=== PATIENT | female | born 1930 | race Caucasian/White ===

== ENCOUNTER 2019-03-20 16:26 | Inpatient (IN) | payer MEDICARE ==
[~2019-03-20] VITALS: Ht 162.6 cm; Wt 60.3 kg
[~2019-03-20 16:26] MED LIST: ASPIRIN EC81 MG PO; COLACE100 MG PO; QUETIAPINE FUMA25 MG PO; SYNTHROID50 MCG PO; VITAMIN D1000 UNI1 PO
[2019-03-20] MEDS ORDERED: ACETAMINOPHEN325 M1 PO (17:25)
--- NOTE | 2019-03-20 20:15 | NUR ---
TO RM 126 PER STRETCHER FROM ED. MOVED FRON STRETCHER TO BED AND PT STACY WELL, NO CRIES OF PAIN AND IS CALM. L HIP NOTED TO BE ROTATED, FEET ARE COOL BILAT BUT HAS POST TIBIAL PULSES BILAT AND FAINT DORASL PEDLALIS PULSES BILAT. DAUGHTER WITH PT.
--- NOTE | 2019-03-20 21:20 | NUR ---
DR BLACKMAN CALLLED RE 4 PLUS BACTERIA IN UA. WILL AWAIT CULTURE. SPOKE QITH DAUGHTER ABOUT PROS AND CONS OF SURGERY. SHE BECAME TEARFUL AT ONE POINT AND GIVEN SUPPORT. PT IS RESTING.
--- NOTE | 2019-03-20 21:59 | NUR ---
PT IS STILL SLEEPING COMFORTABLY, DAUGHTER AT BEDSIDE. NO NEW CONCERNS AT THIS TIME.
--- NOTE | 2019-03-20 23:55 | NUR ---
HAS BEEN TRYING TO PULL AT WILKES CATH. ATTENDS CHANGED, NO STOOL BUT PASSING GAS. PT GRABBED AT L HIP AND RESISITED TURNING. AFTERWARD GAVE PT WATER AND DRANK WITHOUT PROBLEM. GIVEN 1 NORCO PO WITH PUDDING AND THEN PT ATE ALL OF PUDDING WITHOUT PROBLEM. WILL OCC SAY A FEW WORDS. GOOD PULSES TO L FOOT.
--- NOTE | 2019-03-21 00:26 | NUR ---
PT AT THIS TIME IS SOMEWHAT RESTLESS IN BED. TRIED TO RE-ORIENT PT TO PLACE AND CIRCUMSTANCE.
--- NOTE | 2019-03-21 01:28 | NUR ---
PT IS STILL RESTLESS. PT PULLED OFF STAT-LOCK ON WILKES. MITTENS WERE MADE FOR PATIENT.
--- NOTE | 2019-03-21 02:05 | NUR ---
EYES CLOSED, RESTFUL
--- NOTE | 2019-03-21 03:07 | NUR ---
PT AT THIS TIME IS SLEEPING.
--- NOTE | 2019-03-21 03:59 | NUR ---
PT RESTLESS AND GRIMACING. WHEN SHOULDERS MOVED SO HEAD WAS NOT RESTING ON SIDE RAIL PT STARTLED AND LOOKED FRIGHTENED. HR 90'S AND BP 171/66. PT GIVEN 0.5MG DILAUDID IV FOR PAIN. HEEL PROTECTORS ON. FEET ARE WARM AND PINK AND DORSAL PEDALIS PULSES ARE NOW STRONG.
--- NOTE | 2019-03-21 05:03 | NUR ---
IS RESTFUL NOW.
--- NOTE | 2019-03-21 06:34 | NUR ---
CONT TO SLEEP. DR BLACKMAN NOTIFIED OF URINE OUTPUT. ORDERS RECIEVED.
--- NOTE | 2019-03-21 06:44 | NUR ---
NS 500ML BOLUS STARTED.
--- NOTE | 2019-03-21 07:30 | NUR ---
report recieved. CHUNG PATENT. IVF INFUSING.
--- NOTE | 2019-03-21 07:41 | EKG ---
[facility] [address] [place], [place] [address] Signed Normal sinus rhythm Normal ECG No previous ECGs available Confirmed by ALVARO SANCHEZ MD ([id number]) on 03/21/2019 7:41:19 AM Electronically Signed By: ALVARO SANCHEZ MD 03/21/19 0741 PATIENT NAME: FRANGRACIEBRE L Electrocardiogram DATE OF : 34 PHYSICIAN: ALVARO SANCHEZ MD REPORT #: [id number] REPORT IS CONFIDENTIAL AND NOT TO BE RELEASED WITHOUT AUTHORIZATION
--- NOTE | 2019-03-21 08:00 | NUR ---
ASSESSMENT DONE. NON-VERBAL. GRIMACE WITH MOVEMENT. DAUGHTER AT BEDSIDE.
--- NOTE | 2019-03-21 08:22 | NUR ---
NOCO GIVEN FOR PAIN. CRUSHED MEDS, NORCO GIVEN WITH APPLESAUSE. DR. BLACKMAN HERE TO SEE PATIENT. ORDERS RECIEVED. DR. BLACKMAN TALKED WITH DAUGHTER AND SON ABOUT PLAN OF CARE.
--- NOTE | 2019-03-21 09:30 | NUR ---
TORDOL 15 MG IV GIVEN PER ORDERS. DAUGHTER REMAINS AT BEDSIDE.
--- NOTE | 2019-03-21 09:45 | NUR ---
ASLEEP, NO DISTRESS NOTED. BREAKFAST HELD AT THIS TIME.
--- NOTE | 2019-03-21 10:40 | NUR ---
REPOSITIONED, GRIMACE WITH MOVEMENT
--- NOTE | 2019-03-21 12:06 | NUR ---
NORCO GIVEN PER ORDERS.
--- NOTE | 2019-03-21 13:30 | NUR ---
FED PT APPROX 50% OF LUNCH.
--- NOTE | 2019-03-21 14:00 | NUR ---
SPONGE BATH GIVEN. MOANS AT TIMES AND GRIMACING. VERY DIFFICULT TO MOVE.
--- NOTE | 2019-03-21 15:20 | NUR ---
TORDOL 15 MG IV GIVEN FOLLOWED BY TYLENOL IV.
--- NOTE | 2019-03-21 18:00 | NUR ---
[facility] PT SITTING UP IN BED FOR DINNER.
--- NOTE | 2019-03-21 18:50 | NUR ---
TOOK 80% OF DINNER WAS FED BY RN. NO TROUBLE WITH SWALLOW. DAUGHTER IS IN ROOM.
--- NOTE | 2019-03-21 19:01 | NUR ---
PT ARRIVED FROM CCU VIA BED. PT ONLY MUMBLES. RESTING IN BED OPENING AND CLOSING EYES OCC, NO FACIAL GRIMACE OR OTHER SIGNS OF PAIN NOTED AT THIS TIME. WILKES PATENT. IV INFUSING WNL. VS OBTAINED. REPORT GIVEN TO NESHA CURTIS NURSE. BED ALARM ON. DAUGHTER CARMELO AT BEDSIDE.
--- NOTE | 2019-03-21 20:04 | NUR ---
RECEIVED REPORT FROM DAY SHIFT RN. PATIENT IS RESTING IN BED. DAUGHTER IS AT THE BEDSIDE. PATIENTS DAUGHTER DENIES ANY NEEDS AT THIS TIME. CALL LIGHT IN REACH. BED ALARM ON FOR SAFETY.
--- NOTE | 2019-03-21 21:09 | NUR ---
PATIENT ASSEMENT COMPLETED. IV IUNFUSING PER ORDER. PATIENT REPOSTIIONED. EVENING MEDICATIONS GIVEN PER ORDER. PATIENT APPEARS TO BE RESTING COMFORTABLY. PATIENTS DAUGHTER DENIES PATIENT BEING IN PAIN. PATIENTS VITALS TAKEN AND RECORDED. SIPS OF WATER OFFERED. PATIENT COMPLAINT WITH CARE BUT FEARFUL AT TIMES. PATIENT REASSURED WITH POSTIVIE REINFORCMENT DURING CARE. NO FURTHER NEEDS NOTED. CALL LIGHT IN REACH. BED ALARM ON FOR SAFETY. DAUGHTER REMAINS IN THE ROOM. HEEL PROTECTORS IN PLACE.
--- NOTE | 2019-03-21 22:22 | NUR ---
PATIENTS DAUGHTER NOTIFIED STAFF THAT THE PATIENT WAS UNCOMFORTABLE. PATIENT REPOSITIONED IN BED. PATIENT NOW APPEARS COMFORTABLE. PATIENTS EYES ARE CLOSED, RR 17. PATIENTS WILKES EMPTIED INTAKE AND OUPUT RECORDED. PATIENTS DAUGHTER DENIES ANY NEEDS. CALL LIGHT IN REACH. BED ALARM IS ON FOR SAFETY.
--- NOTE | 2019-03-21 22:23 | NUR ---
THIS CHIEF MEDICAL OFFICER AND PRIMARY RN REPOSITIONED PATIENT. DAUGHTER IN ROOM.
--- NOTE | 2019-03-21 23:42 | NUR ---
PATIENT REPOSITIONED IN BED. PATIENT APPEARS TO BE RESTING PEACFULLY. BED ALARM IS ON FOR SAFETY. CALL LIGHT IN REACH.
--- NOTE | 2019-03-22 01:44 | NUR ---
PATIENT REPOSITIONED IN BED. PATIENT APPEARS RESTLESS AND IS CRYING OUT. PATIENT GIVEN PRN PAIN MEDICAITON PER ORDER. PATIENTS WILKES EMPTIED. PATIENT PROVIDED WITH DRINKS OF WATER. PATIENT WAS ABLE TO DRINK A FAIR AMOUNT OF WATER. PATIENT GIVEN APPLESAUCE WITH MEDICINE. PATIENT WAS ABLE TO EAT 1/2 CUP APPLESAUCE WITH ASSISTANCE. NO FURTHER NEEDS NOTED. CALL LIGHT IN REACH. BED ALARM ON FOR SAFETY.
--- NOTE | 2019-03-22 03:24 | NUR ---
PATIENT RESPOSTIONED IN BED. PATIENT TOLERATED ACTIVITY WELL. PATIENT IS RESTING IN BED. DRINK OF WATER PROVIDED. CALL LIGHT IN REACH. BED ALARM ON FOR SAFETY.
--- NOTE | 2019-03-22 04:28 | NUR ---
PATIENT RESTED WELL THROUGHOUT THE SHIFT. PATIENT IS ON A REGULAR DIET AND REQUIRES ASSISTANCE WITH FEEDING. PATIENT HAS A WILKES IN PLACE THAT IS NOT CHRONIC. PATIENTS OUPUT IS QS. PATIENT IS WEIGHT BEARING TOLERATED, AND HAS NOT BEEN OUT OF BED. PATIENT HAS HEEL PROTECTORS IN PLACE ON BILAT FEET. PATIENT TAKES HER PILLS CRUSHED IN APPLESAUCE. PATIENT SPEAKS IN FRAGMENTED SENTENCES. PATIENT IS NOT ALERT OR ORIENTED. PATIENT DOES NOT USE CALL LIGHT. PATIENT HAS BED ALARM ON FOR SAFETY.
--- NOTE | 2019-03-22 05:13 | NUR ---
PATIENT REPOSITIONED IN BED. PATIENTS VITALS TAKEN AND RECORDED. WILKES EMPTIED AND WILKES CARE COMPLETED. PATIENT WAS ANXIOUS WITH CARE. PATIENT NOW APPEARS TO BE RESTING IN BED PEACEFULLY. PATIENT HAS BILAT HEEL PROTECTORS IN. PATIENTS BED ALARM IS ON FOR SAFETY. CALL LIGHT IN REACH.
--- NOTE | 2019-03-22 07:00 | NUR ---
BEDSIDE HANDOFF REPORT RECEIVED FROM HOSE COUPLING JOINER RN. PT SLEEPING, LEFT UNDISTURBED. IV FLUIDS IN FUSING D5NS +20MEQ K AT 75, CEFEPIME INFUSING. BED ALARM IN PLACE.
--- NOTE | 2019-03-22 08:00 | NUR ---
PT RESTING IN BED, DAUGHTER AT BEDSIDE. PT APPEARS COMFORTABLE, DAUGHTER DOES NOT THIS PT IS HAVING PAIN. PT ON ROOM AIR, LUNG SOUND CLEAR. BOWEL TONES ACTIVE. PT MOVING RIGHT LEG WITHOUT DIFFICULTY, PT NOT FOLLOWING COMMANDS DUE TO DEMENTIA, LEG REST PULSE PALPBLE, PAIN WITH MOVEMENT, HEEL PROTECTORS IN PLACE. IV FLUIDS INFUSING D5NS +20 MEQ K AT 75ML/HR, IV CEFEPIME INFUSING. DISCUSSED PLAN OF CARE WITH DAUGHTER. DAUGHTER DENIES NEEDS AT THIS TIME.
--- NOTE | 2019-03-22 09:15 | NUR ---
MESSAGE LEFT FOR GAS APPLIANCE REPAIRER AT [facility] FOR CALL BACK TO DISCUSS DISCHARGE NEEDS.
--- NOTE | 2019-03-22 10:16 | NUR ---
PT RESPOSITIONED IN BED. BED ALARM IN PLACE. DAUGHTER STATES SHE WILL BE LOVING SOON.
--- NOTE | 2019-03-22 10:56 | NUR ---
SPOKE WITH LALIT FROM [facility]. SHE STATES THEY ARE PLANNING ON PATIENT RETURNING TO FACILITY. SHE STATES PATIENT WAS DECLINING RECENTLY DUE TO DEMENTIA. SHE STATES SHE DOES THINK SHE WILL NEED A HOSPITAL BED, PROBABLE IMAN LIFT, CRUSHABLE MEDICATIONS, AND WILKES FOR COMFORT. DISCUSSED THAT I WILL RUN THAT BY HER DISCHARGING PHYSCIAN. SHE STATES POSSIBLE HOME HEALTH OR HOSPICE COULD BE USED, ALSO. WILL CONTINUE TO WORK ON DISCHARGE PLAN WITH STAFF, FAMILY.
--- NOTE | 2019-03-22 12:10 | NUR ---
NURSE AIDE TO ASSIST PT TO EAT LUNCH, NURSE AIDE STATES PT REPORTING PAIN. FLACC SCORE 6, GIVEN 1 TAB NORCO, CRUSHED AND GIVEN WITH APPLE SAUCE.
--- NOTE | 2019-03-22 14:05 | NUR ---
PT RESTINGIN BED, PT APPEARS COMFORTABLE. IV TO RIGHT AC LEAKING, DISCONTINUED. NEW IV PLACED TO LEFT FOREARM, IV TORADOL GIVEN. IV FLUIDS AND CEFEPIME STARTED. PT WITH WILKES DRAINING YELLOW URINE. NO NO ACUTE CHANGES. BED ALARM IN PLACE.
--- NOTE | 2019-03-22 15:55 | NUR ---
DR BLACKMAN CALLED TO CLARIFY IF PT SHOUL DHAVE P.T. ORDER, TELEPHONE ORDER FOR P.T. EVAL AND TREAT, TOE TOUCH WEIGHT BEARING. ORDER TO DC IV FLUIDS SINCE PT TAKING FLUIDS WELL AND HAD GOOD URINE OUTPUT, RBOV.
--- NOTE | 2019-03-22 18:24 | NUR ---
PT ON ROOM AIR, LUNG SOUNDS CLEAR. HX OF DEMENTIA, AT BASELINE. PT TOLERATING REGULAR DIET, SWALLOW EVAL SHOWED NO ASPIRATION, REQUIRES ASSISTANCE TO EAT. PT UNABLE TO COMMUNICATE PAIN, GIVEN SCHEDULED TORADOL, NORCO X1. PT WORKED WITH P.T., ONLY ABLE TO DO BED EXERCISED, IMAN LIFT. IV FLUIDS DISCONTINUED, IV CEFEPIME. WILKES CATH IN PLACE, QS. UNABLE TO ASSESS SENSATION, HEEL PROTECTORS IN PLACE.
--- NOTE | 2019-03-22 20:00 | NUR ---
ROUNDED CHARGE. PATIENT IS RESTING IN BED. DAUGHTER IS AT THE BEDSIDE. ALL QUESTIONS ANSWERED. PATIENT APPEARS TO BE RESTING COMFORTABLY. CALL LIGHT IN REACH. BED ALARM IS ON FOR SAFETY.
--- NOTE | 2019-03-22 20:13 | NUR ---
COOP WITH ASSESSMENT, SLIGHTLY AGITATED, DAUGHTER IN ROOM WAS CONCERNED ABOUT MOTHERS CONSTIPATION. DR JIN CALLED, NEW ORDERS FOR SENNA OBTAINED. CALL LIGHT AT BEDSIDE, TOLERATED LIQUIDS FINE, REPOSITIONED IN BED, F/C IN PLACE
--- NOTE | 2019-03-23 00:52 | NUR ---
REPOSITIONED IN BED, PROCEDURE EXPLAINED, SEMI COOPERATIVE, EASILY REDIRECTABLE. GPPD CMS L LEG, HEEL PROTECTORS PLACED BACK ON SHE KICKS THEM OFF. ABD INFUSING, F/C PATENT, DRAINING LARGE AMOUNTS OF CLEAR URINE. CALL LIGHT AT BEDSIDE, BED ALARM ON.
--- NOTE | 2019-03-23 04:55 | NUR ---
PT WAS RESTLESS AT BEGINING OF SHIFT, GETS MEDICATED WITH SCHEDULED TORADOL. EFFECTIVE. SL PATENT, NO ADVERSE REACTION TO ABX. PT TURNED Q2H, PAINFUL L HIP WITH TURNING, ALL PROCEDURES EXPLAINED TO PT, PT HAS DEMENTIA, UNABLE TO ASSESS DEGREE OF UNDERSTANDING. F/C PATENT. BED ALARM ON, CALL LIHGT AT BEDSIDE., KICLS HEEL PROTECTORS OFF, REPOSITIONING T/O THIS NIGHT. ON ROOM AIR
--- NOTE | 2019-03-23 06:00 | NUR ---
TURNED, COOPERATIVE, MOUTH CARE DONE. F/C PATENT, DRAINING DARK YELLOW URINE. HEEL PROTECTORS IN PLACE. PROCEDURE EXPLAINED. BED ALARM ON, RAILS UP, CALL LIHGT AT BEDSIDE.
--- NOTE | 2019-03-23 07:00 | NUR ---
SPOKE WITH DR BLACKMAN AT [facility]. HE IS DISCHARGING PATIENT AND SPOKE WITH DAUGHTER. DISCUSSED FACILITY ASK FOR HOSPITAL BED. HE STATES PATIENT DOES NOT QUALIFY, SHE CAN BE OOB TO CHAIR TOLERATED AND SHE IS NOT ASPIRATING. HE ALSO STATES NO PHYSICAL THERAPY AT THIS TIME. HE WILL FOLLOW PATIENT OUTPATIENT GOING FORWARD FOR FURTHER NEEDS.
--- NOTE | 2019-03-23 07:00 | NUR ---
BEDSIDE HANDOFF REPORT RECEIVED FROM AUTOMATIC SCREWMAKER RN. PT RESTING COMFORTABLY IN BED. BED ALARM ON. IV CEFEPIME INFUSING.
[2019-03-23] MEDS ORDERED: HYDROCODON-ACE1 EA11 PO (08:10)
[2019-03-23] MEDS ORDERED: SENNA LAX8.6 MG PO (08:10)
[2019-03-23] MEDS ORDERED: KEFLEX500 MG PO (08:11)
--- NOTE | 2019-03-23 08:15 | NUR ---
SPOKE WITH DAUGHTER DORI IN ROOM. PATIENT AWAKE, DOES NOT RESPOND TO QUESTIONS DUE TO DEMENTIA. DAUGHTER HAS SEEN DR BLACKMAN AND IS AWARE OF DISCHARGE BACK TO [facility] TODAY. DISCUSSED THAT I SPOKE WITH LALIT FROM [facility] YESTERDAY AND THAT THEY WERE HOPING TO GET A HOSPITAL BED AT SOME POINT FOR PATIENT, BUT THAT AT THIS TIME DR BLACKMAN DOES NOT THINK SHE QUALIFIES FOR ONE. WE DISCUSSED THAT THEY CAN TALK WITH HER PCP ABOUT THIS, TOO. DORI WOULD LIKE FOR US TO USE WHEELCHAIR TAXI FOR PATIENTS RETURN TO FACILITY. WE DISCUSSED EMS NON-EMERGENT AND THAT IF WHEELCHAIR TAX ISN'T FEESIBLE THAN THEY CAN TRY EMS, BUT THAT I CANNOT GUARANTEE HER INSURANCE WOULD PAY FOR THIS. SHE STATES THEY USE THE WHEELCHAIR TAXI FOR PATIENT ROUTINELY AND WANTS TO TRY THIS TODAY. DORI IS WELL UNDERSTANDING OF WHAT IS EXPECTED GOING FORWARD AFTER VISITING WITH DR BLACKMAN AND DR SANCHEZ. SHE STATES THE STAFF HAS DONE A GOOD JOB KEEPING HER UPDATED, ALSO. QUESTIONS ANSWERED. NO CONCERNS FROM DORI REGARDING PATIENT RETURNING TO [facility] TODAY. STAFF NURSES UPDATED ON PLAN, THEY WILL ARRANGE DISCHARGE AND TRANSPORTATION.
--- NOTE | 2019-03-23 08:55 | NUR ---
MESSAGE LEFT FOR LALIT AT [facility] THAT PATIENT IS BEING DISCHARGED TO FACILITY TODAY EXPECTED. LEFT MESSAGE FOR HER TO CALL [facility] AT [phone] FOR QUESTIONS.
--- NOTE | 2019-03-23 09:30 | NUR ---
PT RESTIGN QUIETLY IN BED, DAUGHTER AT BEDSIDE. DAUGHTER STATES PT DOES NOT APPEAR TO BED IN PAIN AT THIS TIME. PT ON ROOM AIR, LUNG SOUNDS CLEAR. BOWEL TONES ACTIVE, TOLERATING REGULAR DIET, ASSISTED WITH ORDERING BREAKFAST. PT WITHOTU EDEMA, CMS INTACT, PULSES STRONG. WILKES CATH IN PLACE, DRAINING YELLOW URINE. IV CEFEPINE INFUSING. MORNING MEDICATIONS GIVEN WITH APPLED SAUCE. PT DENIES OTHER NEEDS AT THIS TIME.
--- NOTE | 2019-03-23 10:10 | NUR ---
PT WITH WILKES CATH, DARLENE FROM [facility] ASKING IF PT WILL BE DISCHARGED WIHT CATHETER, WOULD NEED HOME HEALTH FOR WILKES CARE ORDERED. DR. BLACKMAN CALLED, ORDER TO DISCONTINUE CATHERTER.
--- NOTE | 2019-03-23 10:30 | NUR ---
WILKES CATH REMOVED PER ORDER. ASSISTED P.T. TO HOYE LIFT PT TO CHAIR, PT TOLERATED WELL.
--- NOTE | 2019-03-23 10:44 | NUR ---
FAXED DISCHARGE PAPERS TO [facility], CONFIRMATION IN CHART
--- NOTE | 2019-03-23 11:37 | NUR ---
PT SITTING IN CHAIR. PT HAS REMAINED UPRIGHT. DISCUSSED TRANSPORTATION WITH [facility], AGREED THAT PT APPEARS TO COMFORTABLE AND SAFE SITTING AND WOULD BE TRANSPORTED BY WHEEL CHAIR VAN. PT WILL STAY AND EAT LUNCH IN CHAIR, DISCUSSED IMAN BACK TO BED TO GET DRESSED. DAUGHTER DENEIS OTHER NEEDS AT THIS TIME.
== END 2019-03-23 13:40 | disposition home or self-care (01) | DRG 536 ==
LOC: ED 16:26 → CCU 18:35 → MS 03-21 18:50
PROVIDERS: ADMIT Specialist
DX: S72.012A Unspecified intracapsular fracture of left femur, initial encounter for closed fracture (principal); N39.0 Urinary tract infection, site not specified; F03.90 Unspecified dementia, unspecified severity, without behavioral disturbance, psychotic disturbance, mood disturbance, and anxiety; B96.20 Unspecified Escherichia coli [E. coli] as the cause of diseases classified elsewhere; I25.10 Atherosclerotic heart disease of native coronary artery without angina pectoris; I10 Essential (primary) hypertension; E03.9 Hypothyroidism, unspecified; W18.30XA Fall on same level, unspecified, initial encounter; Z66 Do not resuscitate; Z88.8 Allergy status to other drugs, medicaments and biological substances; Z79.899 Other long term (current) drug therapy
CPT/HCPCS: 36415; 80048; 80053; 81001; 85025; 85610; 87077; 87088; 87186; 92610; 93005; 93010; 93970; 96374; 97110; 97163; 99285-25; J0131; J0692; J1170; J1885; J7040; J7060